=== PATIENT | female | born 1965 | race American Indian/Alaskan Native ===

== ENCOUNTER 2021-12-13 00:58 | Inpatient (IN) | payer SELFPAY ==
--- NOTE | 2021-12-13 01:26 | Emergency Department Report ---
HPI - General Chief Complaint: Dyspnea/Respdistress Time Seen by Provider: 12/13/21 01:14 - [facility] HPI: Room 5 The patient is a 56-year-old female present with chief complaint of shortness of breath. Patient states for the past 2 weeks she has had dyspnea on exertion and bilateral lower extremity edema. Patient states her abdomen has also began to swell at the bottom. Patient states she has to sleep sitting up because otherwise she gets short of breath. Patient denies having any past medical history except for gout ED Past Medical Hx - Past Medical History Previous Medical History?: Yes Additional medical history: Gout - Surgical History Past Surgical History?: No - Family History Family history: no significant - Social History Smoking Status: Never Smoker Substance Use Type: None (Denies illicit drug use) ED Review of Systems ROS: Stated complaint: CHIKIS Other details as noted in HPI Constitutional: no symptoms reported Eyes: denies: eye pain ENT: denies: throat pain Respiratory: orthopnea, shortness of breath, SOB with exertion Cardiovascular: dyspnea on exertion. denies: chest pain Endocrine: no symptoms reported Gastrointestinal: abdominal pain Genitourinary: denies: dysuria Musculoskeletal: denies: back pain Skin: other (Lower extremity edema) Neurological: denies: headache Physical Exam - Physical Exam Vital Signs: Vital Signs 12/13/21 01:05 Temperature 97.7 F Pulse Rate 100 H Respiratory 18 Rate Blood Pressure 116/70 O2 Sat by Pulse 99 Oximetry Physical Exam: GENERAL: The patient is well-developed well-nourished female lying on stretcher not appearing to be in acute distress. [] HEENT: Normocephalic. Atraumatic. Extraocular motions are intact. Patient has moist mucous membranes. NECK: Supple. Trachea midline CHEST/LUNGS: Clear to auscultation. There is no respiratory distress noted. HEART/CARDIOVASCULAR: Regular. There is no tachycardia. There is no gallop rub or murmur. ABDOMEN: Abdomen is soft, nontender. Patient has normal bowel sounds. There is no abdominal distention. SKIN: There is no rash. There is 2+ bilateral lower extremity pitting edema. There is trace pitting edema of the lower abdomen. There is no diaphoresis. NEURO: The patient is awake, alert, and oriented. The patient is cooperative. The patient has no focal neurologic deficits. The patient has normal speech. GCS 15 MUSCULOSKELETAL: There is no evidence of acute injury. ED Course Vital Signs 12/13/21 01:05 Temperature 97.7 F Pulse Rate 100 H Respiratory 18 Rate Blood Pressure 116/70 O2 Sat by Pulse 99 Oximetry ED Medical Decision Making - Lab Data Result diagrams: 12/13/21 01:51 12/13/21 01:51 Laboratory Tests 12/13/21 12/13/21 12/13/21 01:51 01:51 01:51 WBC 4.9 RBC 4.88 Hgb 10.7 Hct 35.0 MCV 72 L MCH 22 L MCHC 31 RDW 16.1 H Plt Count 143 [place] % (Auto) Customer Service Advocate PT 16.6 H INR 1.17 H Sodium 140 Potassium 4.0 Chloride 100.8 Carbon Dioxide 28 Anion Gap 15 BUN 9 Creatinine 0.8 Estimated GFR > 60 BUN/Creatinine Ratio 11 Glucose 108 H Calcium 8.8 Total Bilirubin 1.60 H AST 19 ALT 14 Alkaline Phosphatase 111 Total Creatine Kinase 139 H CK-MB (CK-2) 1.4 CK-MB (CK-2) Rel Index 1.0 Troponin T < 0.010 NT-Pro-B Natriuret Pep 4538 H Total Protein 6.5 Albumin 4.1 Albumin/Globulin Ratio 1.7 - EKG Data -: EKG Interpreted by Me EKG shows normal: sinus rhythm Rate: tachycardia (104 beats per) - EKG Data When compared to previous EKG there are: previous EKG unavailable Interpretation: nonspecific ST-T wave veronica - Radiology Data Radiology results: report reviewed (Chest x-ray), image reviewed (Chest x-ray) interpreted by me: Chest x-ray-CHF, no pneumothorax. No focal infiltrates [facility] [address] [place] [address] XRay Report Signed Patient: JOANN MORTON MR#: [id number] : 1965 Acct:[id number] Age/Sex: 56 / F ADM Date: 12/13/21 Loc: ED Attending Dr: Ordering Physician: DOMENICA ALONZO MD Date of Service: 12/13/21 Procedure(s): XR chest 1V ap Accession Number(s): [id number] cc: DOMENICA ALONZO MD Fluoro Time In Minutes: CHEST 1 VIEW INDICATION / CLINICAL INFORMATION: Shortness of breath. COMPARISON: None available. FINDINGS: SUPPORT DEVICES: None. HEART / MEDIASTINUM: Mild cardiomegaly. Pericardial effusion not excluded. LUNGS / PLEURA: Mild prominence of central vasculature. Opacities bilaterally within the lower chest may in part reflect beam attenuation. Mild pulmonary edema not excluded. Upper lungs clear. BONES: No significant osseous abnormality. ADDITIONAL FINDINGS: No significant additional findings. IMPRESSION: 1. Mild pulmonary edema and vascular congestion changes are suggested. Signer Name: Bryant Valencia II, MD Signed: 12/13/2021 2:03 AM Workstation Name: [id number] Transcribed By: RIVER Dictated By: BRYANT VALENCIA II, MD Electronically Authenticated By: BRYANT VALENCIA II, MD Signed Date/Time: 12/13/21202 DD/ 1 TD/TT: - Differential Diagnosis CHF, hypoalbuminemia, nephrotic syndrome, acute renal failure Critical care attestation.: If time is entered above; I have spent that time in minutes in the direct care of this critically ill patient, excluding procedure time. ED Disposition Clinical Impression: New onset of congestive heart failure Disposition: ADMITTED INPATIENT Is pt being admited?: Yes Does the pt Need Aspirin: Yes Condition: Fair Time of Disposition: 04:28 (Care transferred to hospitalist (Dr. Ibarra))
--- NOTE | 2021-12-13 02:07 | XRay Report ---
CHEST 1 VIEW INDICATION / CLINICAL INFORMATION: Shortness of breath. COMPARISON: None available. FINDINGS: SUPPORT DEVICES: None. HEART / MEDIASTINUM: Mild cardiomegaly. Pericardial effusion not excluded. LUNGS / PLEURA: Mild prominence of central vasculature. Opacities bilaterally within the lower chest may in part reflect beam attenuation. Mild pulmonary edema not excluded. Upper lungs clear. BONES: No significant osseous abnormality. ADDITIONAL FINDINGS: No significant additional findings. IMPRESSION: 1. Mild pulmonary edema and vascular congestion changes are suggested. Signer Name: Rigo Mesa II, MD Signed: 12/13/2021 2:03 AM Workstation Name: [id number]
[2021-12-13 02:18] LABS: Hemoglobin 10.7 gm/dl (10.1-14.3); Mean Corpuscular HGB Conc 31 % (30-34); Mean Corpuscular Volume 72 fl (79-97); Red Blood Count 4.88 M/mm3 (3.65-5.03); Red Cell Distribution Width 16.1 % (13.2-15.2)
[2021-12-13 02:27] LABS: INR 1.17 (0.87-1.13); Platelet Count 143 K/mm3 (140-440)
[2021-12-13 02:40] LABS: Creatine Kinase MB 1.4 ng/mL (0.0-4.0)
[2021-12-13 02:42] LABS: Alanine Aminotransferase 14 units/L (7-56); Albumin 4.1 g/dL (3.9-5); BUN/Creatinine Ratio 11; Blood Urea Nitrogen 9 mg/dL (7-17); Calcium 8.8 mg/dL (8.4-10.2); Hemolysis Index 8
[2021-12-13] MEDS ORDERED: FUROSEMIDE 40 MG/4 ML INJ IV ONE (02:59)
[2021-12-13 03:51] LABS: Anisocytosis 1+; Platelet Estimate Consistent w Auto; Total Cells Counted 100
[2021-12-13] MEDS ORDERED: MORPHINE 2 MG/1 ML INJ IV PRN ×2 (04:34→04:58)
[2021-12-13] MEDS ORDERED: ONDANSETRON 4 MG/2 ML INJ IV PRN ×2 (04:34→04:58)
[2021-12-13] MEDS ORDERED: ACETAMINOPHEN 325 MG TAB PO PRN ×2 (04:34→04:58)
[2021-12-13] MEDS ORDERED: MORPHINE 4 MG/1 ML INJ IV PRN (04:58)
[2021-12-13] MEDS ORDERED: ALBUTEROL 2.5 MG/3 ML NEBU IH PRN (04:58)
--- NOTE | 2021-12-13 05:04 | History and Physical Report ---
History of Present Illness Date of examination: 12/13/21 Date of admission: 12/13/21 Chief complaint: Dyspnea Respiratory distress History of present illness: 56-year-old female present with history of gout was brought to the hospital because of shortness of breath. Patient states for the past 2 weeks she has had dyspnea on exertion and bilateral lower extremity edema. Patient states her abdomen has also began to swell at the bottom. Patient states she has to sleep sitting up because otherwise she gets short of breath. In the emergency room patient chest x-ray shows mild pulmonary edema and vascular congestion. Also patient BNP is 4538 Past History Past Medical History: other (Gout) Past Surgical History: No surgical history Social history: no significant social history Family history: no significant family history Medications and Allergies Allergies Allergy/AdvReac Type Severity Reaction Status Date / Time No Known Allergies Allergy Verified 12/13/21 04:37 Active Meds: Active Medications Acetaminophen (Acetaminophen 325 Mg Tab) 650 mg PO Q4H PRN PRN Reason: Pain MILD(1-3)/Fever >100.5/BOLTON Morphine Sulfate (Morphine 2 Mg/1 Ml Inj) 2 mg IV Q4H PRN PRN Reason: Pain, Moderate (4-6) Ondansetron HCl (Ondansetron 4 Mg/2 Ml Inj) 4 mg IV Q8H PRN PRN Reason: Nausea And Vomiting Sodium Chloride (Sodium Chloride 0.9% 10 Ml Flush Syringe) 10 ml IV BID KENNETH Sodium Chloride (Sodium Chloride 0.9% 10 Ml Flush Syringe) 10 ml IV PRN PRN PRN Reason: LINE FLUSH Review of Systems All systems: negative Cardiovascular: orthopnea, edema, shortness of breath, dyspnea on exertion, paroxysmal nocturnal dyspnea Exam - Constitutional Vitals: Temp Pulse Resp BP Pulse Ox 97.8 F 97 H 17 108/74 99 12/13/21 01:23 12/13/21 04:00 12/13/21 04:00 12/13/21 04:00 12/13/21 04:00 General appearance: Present: no acute distress, well-nourished - EENT Eyes: Present: PERRL ENT: hearing intact, clear oral mucosa - Neck Neck: Present: supple, normal ROM - Respiratory Respiratory effort: normal Respiratory: bilateral: rales - Cardiovascular Heart Sounds: Present: S1 & S2. Absent: rub, click - Extremities Extremities: pulses symmetrical, No edema Peripheral Pulses: within normal limits - Abdominal General gastrointestinal: Present: soft, non-tender, non-distended, normal bowel sounds Female genitourinary: Present: normal - Integumentary Integumentary: Present: clear, warm, dry - Musculoskeletal Musculoskeletal: gait normal, strength equal bilaterally - Psychiatric Psychiatric: appropriate mood/affect, intact judgment & insight - Neurologic Neurologic: CNII-XII intact, moves all extremities HEART Score - HEART Score Troponin: Troponin T < 0.010 ng/mL (0.00-0.029) 12/13/21 01:51 Results - Labs CBC & Chem 7: 12/13/21 01:51 12/13/21 01:51 Labs: Laboratory Last Values WBC 4.9 K/mm3 (4.5-11.0) 12/13/21 01:51 RBC 4.88 M/mm3 (3.65-5.03) 12/13/21 01:51 Hgb 10.7 gm/dl (10.1-14.3) 12/13/21 01:51 Hct 35.0 % (30.3-42.9) 12/13/21 01:51 MCV 72 fl (79-97) L 12/13/21 01:51 MCH 22 pg (28-32) L 12/13/21 01:51 MCHC 31 % (30-34) 12/13/21 01:51 RDW 16.1 % (13.2-15.2) H 12/13/21 01:51 Plt Count 143 K/mm3 (140-440) 12/13/21 01:51 [place] % (Auto) Power Brake Operator 12/13/21 01:51 Add Manual Diff Complete 12/13/21 01:51 Total Counted 100 12/13/21 01:51 Seg Neuts % (Manual) 66.0 % (40.0-70.0) 12/13/21 01:51 Band Neutrophils % 0 % 12/13/21 01:51 Lymphocytes % (Manual) 17.0 % (13.4-35.0) 12/13/21 01:51 Reactive Lymphs % (Man) 0 % 12/13/21 01:51 Monocytes % (Manual) 12.0 % (0.0-7.3) H 12/13/21 01:51 Eosinophils % (Manual) 4.0 % (0.0-4.3) 12/13/21 01:51 Basophils % (Manual) 1.0 % (0.0-1.8) 12/13/21 01:51 Metamyelocytes % 0 % 12/13/21 01:51 Myelocytes % 0 % 12/13/21 01:51 Promyelocytes % 0 % 12/13/21 01:51 Blast Cells % 0 % 12/13/21 01:51 Nucleated RBC % Not Reportable 12/13/21 01:51 Seg Neutrophils # Man 3.2 K/mm3 (1.8-7.7) 12/13/21 01:51 Band Neutrophils # 0.0 K/mm3 12/13/21 01:51 Lymphocytes # (Manual) 0.8 K/mm3 (1.2-5.4) L 12/13/21 01:51 Abs React Lymphs (Man) 0.0 K/mm3 12/13/21 01:51 Monocytes # (Manual) 0.6 K/mm3 (0.0-0.8) 12/13/21 01:51 Eosinophils # (Manual) 0.2 K/mm3 (0.0-0.4) 12/13/21 01:51 Basophils # (Manual) 0.0 K/mm3 (0.0-0.1) 12/13/21 01:51 Metamyelocytes # 0.0 K/mm3 12/13/21 01:51 Myelocytes # 0.0 K/mm3 12/13/21 01:51 Promyelocytes # 0.0 K/mm3 12/13/21 01:51 Blast Cells # 0.0 K/mm3 12/13/21 01:51 WBC Morphology Not Reportable 12/13/21 01:51 Hypersegmented Neuts Not Reportable 12/13/21 01:51 Hyposegmented Neuts Not Reportable 12/13/21 01:51 Hypogranular Neuts Not Reportable 12/13/21 01:51 Smudge Cells Not Reportable 12/13/21 01:51 Toxic Granulation Not Reportable 12/13/21 01:51 Toxic Vacuolation Not Reportable 12/13/21 01:51 Dohle Bodies Not Reportable 12/13/21 01:51 Pelger-Huet Anomaly Not Reportable 12/13/21 01:51 Dean Rods Not Reportable 12/13/21 01:51 Platelet Estimate Consistent w auto 12/13/21 01:51 Clumped Platelets Not Reportable 12/13/21 01:51 Plt Clumps, EDTA Not Reportable 12/13/21 01:51 Large Platelets Not Reportable 12/13/21 01:51 Giant Platelets Not Reportable 12/13/21 01:51 Platelet Satelliting Not Reportable 12/13/21 01:51 Plt Morphology Comment Not Reportable 12/13/21 01:51 RBC Morphology Not Reportable 12/13/21 01:51 Dimorphic RBCs Not Reportable 12/13/21 01:51 Polychromasia Not Reportable 12/13/21 01:51 Hypochromasia Not Reportable 12/13/21 01:51 Poikilocytosis Not Reportable 12/13/21 01:51 Anisocytosis 1+ 12/13/21 01:51 Microcytosis Not Reportable 12/13/21 01:51 Macrocytosis Not Reportable 12/13/21 01:51 Spherocytes Not Reportable 12/13/21 01:51 Pappenheimer Bodies Not Reportable 12/13/21 01:51 Sickle Cells Not Reportable 12/13/21 01:51 Target Cells Not Reportable 12/13/21 01:51 Tear Drop Cells Not Reportable 12/13/21 01:51 Ovalocytes Not Reportable 12/13/21 01:51 Helmet Cells Not Reportable 12/13/21 01:51 Hernández-Duncan Bodies Not Reportable 12/13/21 01:51 Bonita Rings Not Reportable 12/13/21 01:51 Simon Cells Not Reportable 12/13/21 01:51 Bite Cells Not Reportable 12/13/21 01:51 Crenated Cell Not Reportable 12/13/21 01:51 Elliptocytes Not Reportable 12/13/21 01:51 Acanthocytes (Spur) Not Reportable 12/13/21 01:51 Rouleaux Not Reportable 12/13/21 01:51 Hemoglobin C Crystals Not Reportable 12/13/21 01:51 Schistocytes Not Reportable 12/13/21 01:51 Malaria parasites Not Reportable 12/13/21 01:51 Alexx Bodies Not Reportable 12/13/21 01:51 Hem Pathologist Commnt No 12/13/21 01:51 PT 16.6 Sec. (12.2-14.9) H 12/13/21 01:51 INR 1.17 (0.87-1.13) H 12/13/21 01:51 Sodium 140 mmol/L (137-145) 12/13/21 01:51 Potassium 4.0 mmol/L (3.6-5.0) 12/13/21 01:51 Chloride 100.8 mmol/L (98-107) 12/13/21 01:51 Carbon Dioxide 28 mmol/L (22-30) 12/13/21 01:51 Anion Gap 15 mmol/L 12/13/21 01:51 BUN 9 mg/dL (7-17) 12/13/21 01:51 Creatinine 0.8 mg/dL (0.6-1.2) 12/13/21 01:51 Estimated GFR > 60 ml/min 12/13/21 01:51 BUN/Creatinine Ratio 11 % 12/13/21 01:51 Glucose 108 mg/dL (65-100) H 12/13/21 01:51 Calcium 8.8 mg/dL (8.4-10.2) 12/13/21 01:51 Total Bilirubin 1.60 mg/dL (0.1-1.2) H 12/13/21 01:51 AST 19 units/L (5-40) 12/13/21 01:51 ALT 14 units/L (7-56) 12/13/21 01:51 Alkaline Phosphatase 111 units/L (35-129) 12/13/21 01:51 Total Creatine Kinase 139 units/L (30-135) H 12/13/21 01:51 CK-MB (CK-2) 1.4 ng/mL (0.0-4.0) 12/13/21 01:51 CK-MB (CK-2) Rel Index 1.0 (0-4) 12/13/21 01:51 Troponin T < 0.010 ng/mL (0.00-0.029) 12/13/21 01:51 NT-Pro-B Natriuret Pep 4538 pg/mL (0-900) H 12/13/21 01:51 Total Protein 6.5 g/dL (6.3-8.2) 12/13/21 01:51 Albumin 4.1 g/dL (3.9-5) 12/13/21 01:51 Albumin/Globulin Ratio 1.7 % 12/13/21 01:51 - Imaging and Cardiology Chest x-ray: report reviewed Assessment and Plan VTE prophylaxis?: Mechanical Plan of care discussed with patient/family: Yes - Patient Problems (1) New onset of congestive heart failure Status: Acute Plan to address problem: Admit the patient to the medical telemetry. Cardiac diet. Lasix 40 mg IV every 12 hours. Fluid restriction. Maintain daily input output. Daily weight. Echocardiogram. Consult cardiology if needed (2) Gout Status: Acute Plan to address problem: Stable. We continue the home medication (3) DVT prophylaxis Status: Acute Plan to address problem: SCD for DVT prophylaxis. Pepcid 20 mg p.o. twice daily for GI prophylaxis. Patient is a full code
[2021-12-13] MEDS: FUROSEMIDE 40 MG/4 ML INJ IV SCH ×2 (05:46→19:35)
[2021-12-13 06:41] LABS: WBC,Urine < 1.0 /HPF (0.0-6.0)
[2021-12-13 06:45] LABS: Color,Urine Yellow (Yellow)
--- NOTE | 2021-12-13 09:22 | Event Note ---
Date: 12/13/21 Patient seen and examined [place] consulted Heart failure education provided Awaiting ECHO Monitor LOW BP Patient is morbidly obese provided 50 minutes of counseling to the patient on importance of weight loss. Recommended outpatient sleep study she verbalized understanding. Further management based on cardiology recommendation
[2021-12-13] MEDS: IPRATROPIUM/ALBUTEROL SULFATE 3 ML AMPUL.NEB IH SCH ×3 (09:52→22:23)
--- NOTE | 2021-12-13 12:08 | Consultation ---
History of Present Illness Consult date: 12/13/21 Requesting physician: HANNA FLYNN Consult reason: congestive heart failure History of present illness: Patient is a 56-year-old female with a reported past medical history of gout who came to the ED for complaint of progressively worsening shortness of breath and bilateral lower extremity edema x2-week. Patient reports that in this timeframe she is also had dyspnea on exertion, PND, and orthopnea. She states that she is unable to walk for more than several minutes now without becoming very short of breath. She also reports abdominal swelling. She denies any chest pain, nausea, vomiting, diaphoresis, palpitations. In the ED patient was found to have elevated BNP and CXR showed mild pulmonary edema and vascular congestion. Patient is previously unknown to our practice. Cardiology is consulted for CHF. Past History Past Medical History: other (Gout) Past Surgical History: No surgical history Social history: no significant social history Family history: no significant family history Medications and Allergies Allergies Allergy/AdvReac Type Severity Reaction Status Date / Time No Known Allergies Allergy Verified 12/13/21 10:44 Home Medications Medication Instructions Recorded Confirmed Last Taken Type No Known Home Medications [No 12/13/21 12/13/21 Unknown History Reported Home Medications] Active Meds: Active Medications Acetaminophen (Acetaminophen 325 Mg Tab) 650 mg PO Q4H PRN PRN Reason: Pain MILD(1-3)/Fever >100.5/BOLTON Albuterol (Albuterol 2.5 Mg/3 Ml Nebu) 2.5 mg IH Q3HRT PRN PRN Reason: Shortness Of Breath Albuterol/Ipratropium (Ipratropium/Albuterol Sulfate 3 Ml Ampul.Neb) 1 ampul IH Q6HRT [facility] Last Admin: 12/13/21 09:52 Dose: 1 ampul Famotidine (Famotidine 20 Mg Tab) 20 mg PO BID [facility] Furosemide (Furosemide 40 Mg/4 Ml Inj) 40 mg IV BID@0600,1800 [facility] Last Admin: 12/13/21 05:46 Dose: Not Given Morphine Sulfate (Morphine 2 Mg/1 Ml Inj) 2 mg IV Q4H PRN PRN Reason: Pain, Moderate (4-6) Morphine Sulfate (Morphine 4 Mg/1 Ml Inj) 4 mg IV Q4H PRN PRN Reason: Pain , Severe (7-10) Ondansetron HCl (Ondansetron 4 Mg/2 Ml Inj) 4 mg IV Q8H PRN PRN Reason: Nausea And Vomiting Sodium Chloride (Sodium Chloride 0.9% 10 Ml Flush Syringe) 10 ml IV BID KENNETH Sodium Chloride (Sodium Chloride 0.9% 10 Ml Flush Syringe) 10 ml IV PRN PRN PRN Reason: LINE FLUSH Review of Systems Constitutional: no weight loss, no weight gain Ears, nose, mouth and throat: no sinus pressure, no sinus pain Cardiovascular: orthopnea, shortness of breath, dyspnea on exertion, paroxysmal nocturnal dyspnea, leg edema, no chest pain Respiratory: shortness of breath, dyspnea on exertion Gastrointestinal: no abdominal pain, no nausea, no vomiting Musculoskeletal: no neck stiffness, no neck pain Integumentary: no rash, no pruritis, no redness Neurological: no head injury, no transient paralysis, no paralysis Psychiatric: no anxiety, no memory loss Endocrine: no cold intolerance, no heat intolerance Hematologic/Lymphatic: no easy bruising, no easy bleeding Physical Examination Vital Signs Temp Pulse Resp BP Pulse Ox 97.7 F 100 H 18 116/70 99 12/13/21 01:05 12/13/21 01:05 12/13/21 01:05 12/13/21 01:05 12/13/21 01:05 General appearance: no acute distress HEENT: Positive: PERRL Cardiac: Positive: Reg Rate and Rhythm Lungs: Positive: Wheezes Neuro: Positive: Grossly Intact Abdomen: Positive: Soft Skin: Negative: Rash, Suspicious Lesions, Ulceration Extremities: Present: upper extr. pulses, edema Results 12/13/21 01:51 12/13/21 01:51 Cardiac Enzymes 12/13/21 Range/Units 01:51 AST 19 (5-40) units/L CK-MB (CK-2) 1.4 (0.0-4.0) ng/mL Coagulation 12/13/21 Range/Units 01:51 PT 16.6 H (12.2-14.9) Sec. INR 1.17 H (0.87-1.13) CBC 12/13/21 Range/Units 01:51 WBC 4.9 (4.5-11.0) K/mm3 RBC 4.88 (3.65-5.03) M/mm3 Hgb 10.7 (10.1-14.3) gm/dl Hct 35.0 (30.3-42.9) % Plt Count 143 (140-440) K/mm3 Comprehensive Metabolic Panel 12/13/21 Range/Units 01:51 Sodium 140 (137-145) mmol/L Potassium 4.0 (3.6-5.0) mmol/L Chloride 100.8 (98-107) mmol/L Carbon Dioxide 28 (22-30) mmol/L BUN 9 (7-17) mg/dL Creatinine 0.8 (0.6-1.2) mg/dL Glucose 108 H (65-100) mg/dL Calcium 8.8 (8.4-10.2) mg/dL AST 19 (5-40) units/L ALT 14 (7-56) units/L Alkaline Phosphatase 111 (35-129) units/L Total Protein 6.5 (6.3-8.2) g/dL Albumin 4.1 (3.9-5) g/dL - Imaging and Cardiology Echo: pending EKG interpretations - Telemetry EKG Rhythm: Sinus Rhythm - EKG Sinus rhythms and dysrhythmias: sinus rhythm Repolarization changes or abnormalities: nonspecific abnormality, ST segment, and/or T wave Assessment and Plan Patient is a 56-year-old female with a reported past medical history of gout who came to the ED for complaint of progressively worsening shortness of breath and bilateral lower extremity edema x2-week. Acute CHF Obesity Gout Plan: EKG shows sinus tach 104 with nonspecific T abnormalities. No acute ischemic changes. Troponins negative x1. Patient denies any complaints of chest pain BNP noted to be elevated, CXR shows mild pulmonary edema and vascular congestion, and patient has bilateral lower extremity edema and reports PND, orthopnea, and FERNANDES. Agree with Lasix 40 mg IV twice daily for diuresis Strict I&O's, daily weights, repeat BMP in the a.m. with close monitoring of renal function No GUANACO/ARB/Arni or beta-blockers at this time due to soft BP Echo pending Discussed plan of care with patient who verbalized understanding and acknowledgment Patient seen in conjunction with Dr. Gomez who agrees with plan of care - Patient Problems (1) Gout Current Visit: No Status: Acute (2) New onset of congestive heart failure Current Visit: No Status: Acute
[2021-12-13] MEDS: FAMOTIDINE 20 MG TAB PO SCH ×2 (14:24→21:50)
[2021-12-14] MEDS: IPRATROPIUM/ALBUTEROL SULFATE 3 ML AMPUL.NEB IH SCH ×4 (04:31→21:16)
[2021-12-14] MEDS: FUROSEMIDE 40 MG/4 ML INJ IV SCH ×2 (06:09→19:07)
[2021-12-14 06:22] LABS: Hematocrit 32.3 % (30.3-42.9); Mean Corpuscular HGB Conc 31 % (30-34); Mean Corpuscular Volume 71 fl (79-97); Platelet Count 134 K/mm3 (140-440); Red Blood Count 4.54 M/mm3 (3.65-5.03); Red Cell Distribution Width 16.4 % (13.2-15.2)
[2021-12-14 06:43] LABS: BUN/Creatinine Ratio 11; Blood Urea Nitrogen 9 mg/dL (7-17); Calcium 8.9 mg/dL (8.4-10.2); Chol/HDL Ratio 4.03 %; HDL Cholesterol 30 mg/dL (40-59); Hemolysis Index 11; LDL Cholesterol,Direct 77 mg/dL (50-130)
[2021-12-14 07:35] LABS: Total Cells Counted 100
[2021-12-14 07:36] LABS: Hypochromasia 2+; Platelet Estimate Consistent w Auto
--- NOTE | 2021-12-14 09:56 | Electrocardiograph Report ---
[facility] Test Date: 2021-12-13 Test Time: 01:23:29 Pat Name: JOANN MORTON Department: Room: A456 1 Gender: F Spouter: JOE lAba : 1965 Requested By: DOMENICA ALONZO Order Number: [id number] Reading MD: Scott Gomez Measurements Intervals Orient Rate: 104 P: 56 HI: 159 QRS: 3 QRSD: 87 T: QT: 348 QTc: 457 Interpretive Statements Sinus tachycardia Probable left atrial enlargement Nonspecific T abnormalities, lateral leads No previous ECG available for comparison Electronically Signed On 12-14-2021 9:56:39 EDT by Scott Gomez
[2021-12-14] MEDS: ASPIRIN 81 MG TAB CHEW PO SCH (10:50)
[2021-12-14] MEDS: FAMOTIDINE 20 MG TAB PO SCH ×2 (10:50→21:50)
--- NOTE | 2021-12-14 11:50 | Progress Note ---
Assessment and Plan Patient is a 56-year-old female with a reported past medical history of gout who came to the ED for complaint of progressively worsening shortness of breath and bilateral lower extremity edema x2-week. Acute HFrEF Obesity Gout Echo 12/13/2021-EF 15 to 20%. Severe global hypokinesis of LV. Right ventricle systolic function is normal. Right ventricle mildly dilated. Trace aortic regurgitation. Mild mitral regurgitation. Mild to moderate tricuspid regurgitation. Appears to be questionable thrombus in IVC. IVC is dilated and collapses with less than 50% inspiration Plan: Echo results noted above. Due to decreased EF will plan for cardiac cath in the a.m. patient to be n.p.o. after Echo shows questionable thrombus in IVC. CTA abdomen pelvis with contrast pending. If positive for thrombus will initiate anticoagulation with Lovenox Patient reports significant improvement in respiratory status however patient still continues to have bilateral lower extremity edema and some shortness of breath Will Continue Lasix 40 mg IV twice daily for diuresis Strict I&O's, daily weights, repeat BMP in the a.m. with close monitoring of renal function Patient BP improved we will initiate low-dose metoprolol 12.5 mg p.o. twice daily with close monitoring of BP and heart rate Will continue to hold GUANACO/ARB/Arni due to soft BP and initiation of beta-jose eduardo Discussed plan of care with patient who verbalized understanding and acknowledgment Patient seen in conjunction with Dr. Gomez who agrees with plan of care - Patient Problems (1) Gout Current Visit: No Status: Acute (2) New onset of congestive heart failure Current Visit: No Status: Inactive (3) Acute HFrEF (heart failure with reduced ejection fraction) Current Visit: Yes Status: Acute Subjective Date of service: 12/14/21 Principal diagnosis: HFrEF Interval history: Patient resting in bed in no acute distress. Patient reports feeling better this a.m. Sinus 90s on monitor Objective Vital Signs Temp Pulse Pulse Resp Resp BP BP 12/14/21 09:28 12/14/21 09:27 93 H 14 12/14/21 07:51 98.6 F 100 H 18 114/76 12/14/21 05:19 98.2 F 90 18 112/72 12/13/21 23:12 98.3 F 99 H 20 115/74 12/13/21 22:27 90 14 12/13/21 22:23 12/13/21 21:55 97.6 F 94 H 20 107/74 12/13/21 20:20 89 12/13/21 19:54 12/13/21 16:05 84 20 12/13/21 15:10 98.0 F 92 H 18 102/64 Pulse Ox 12/14/21 09:28 99 12/14/21 09:27 12/14/21 07:51 99 12/14/21 05:19 98 12/13/21 23:12 100 12/13/21 22:27 12/13/21 22:23 100 12/13/21 21:55 99 12/13/21 20:20 12/13/21 19:54 100 12/13/21 16:05 12/13/21 15:10 98 - Physical Examination General: No Apparent Distress HEENT: Positive: PERRL Cardiac: Positive: Reg Rate and Rhythm Lungs: Positive: Decreased Breath Sounds Neuro: Positive: Grossly Intact Abdomen: Positive: Soft Skin: Negative: Rash, Suspicious Lesions, Ulceration Extremities: Present: upper extr. pulses, edema - Labs and Meds Lipids 12/14/21 Range/Units 05:57 Triglycerides 77 (2-149) mg/dL Cholesterol 121 (50-199) mg/dL HDL Cholesterol 30 L (40-59) mg/dL Cholesterol/HDL Ratio 4.03 % CBC 12/14/21 Range/Units 05:57 WBC 4.6 (4.5-11.0) K/mm3 RBC 4.54 (3.65-5.03) M/mm3 Hgb 10.0 L (10.1-14.3) gm/dl Hct 32.3 (30.3-42.9) % Plt Count 134 L (140-440) K/mm3 Comprehensive Metabolic Panel 12/14/21 Range/Units 05:57 Sodium 142 (137-145) mmol/L Potassium 4.6 (3.6-5.0) mmol/L Chloride 101.0 (98-107) mmol/L Carbon Dioxide 33 H (22-30) mmol/L BUN 9 (7-17) mg/dL Creatinine 0.8 (0.6-1.2) mg/dL Glucose 103 H (65-100) mg/dL Calcium 8.9 (8.4-10.2) mg/dL - Imaging and Cardiology Echo: report reviewed Cardiac cath: pending - Telemetry EKG Rhythm: Sinus Rhythm - EKG Sinus rhythms and dysrhythmias: sinus rhythm Repolarization changes or abnormalities: nonspecific abnormality, ST segment, and/or T wave
[2021-12-14] MEDS ORDERED: SODIUM CHLORIDE 0.9% 500 ML 500 ML IV SCH (12:00)
--- NOTE | 2021-12-14 13:34 | Cat Scan Report ---
CTA ABDOMEN AND PELVIS WITHOUT AND WITH IV CONTRAST INDICATION / CLINICAL INFORMATION: rule out thrombus in IVC. TECHNIQUE: Axial CT images were obtained through the abdomen and pelvis before and after injection of 100 cc of Omnipaque 350 IV contrast. 3 plane MIP / 3D reconstructions were produced. All CT scans at this [facility] are performed using CT dose reduction for ALARA by means of automated exposure control. COMPARISON: None available. FINDINGS: Aorta: No significant abnormality. Renal arteries: No significant abnormality. Celiac artery: No significant abnormality. Superior Mesenteric Artery: No significant abnormality. Inferior mesenteric artery: No significant abnormality. Right Iliac Arteries: No significant abnormality.. Left Iliac Arteries: No significant abnormality. IVC: No filling defect to suggest thrombosis is detected on the venous images. The venous structures are unremarkable. Additional Findings: Mild cardiomegaly. Trace bilateral pleural effusions. Cholelithiasis without maria teresa dence of acute cholecystitis. Mild uterine fibroid disease. Skeletal Structures: No significant abnormality. IMPRESSION: Unremarkable CTA of the abdomen and pelvis. No evidence for thrombus in the IVC on the delayed images. Mild CHF. Cholelithiasis. Mild uterine fibroid disease. Signer Name: Jareth Espinoza Jr, MD Signed: 12/14/2021 1:30 PM Workstation Name: [id number]
--- NOTE | 2021-12-14 14:27 | Progress Note ---
Assessment and Plan Assessment and plan: 56-year-old female present with history of gout was brought to the hospital because of shortness of breath. Patient states for the past 2 weeks she has had dyspnea on exertion and bilateral lower extremity edema. Patient states her abdomen has also began to swell at the bottom. Patient states she has to sleep sitting up because otherwise she gets short of breath. In the emergency room patient chest x-ray shows mild pulmonary edema and vascular congestion. Also patient BNP is 4538 Past History Past Medical History: other (Gout) Past Surgical History: No surgical history Social history: no significant social history Family history: no significant family history 12/14: Patient seen and examined today reports improvement in her symptoms. Has good urine output did complain some burning sensation with urination feels a secondary to increased urination. Echocardiogram was done and is as noted below Echo 12/13/2021-EF 15 to 20%. Severe global hypokinesis of LV. Right ventricle systolic function is normal. Right ventricle mildly dilated. Trace aortic regurgitation. Mild mitral regurgitation. Mild to moderate tricuspid r egurgitation. Appears to be questionable thrombus in IVC. IVC is dilated and collapses with less than 50% inspiration Regional Loss Prevention Manager planning a cardiac cath in a.m. and also want to get a CTA abdomen and pelvis with contrast to further evaluate the thrombus in the IVC. We will start a full dose anticoagulation if thrombus is confirmed. Further recommendation per Cardiology: Will Continue Lasix 40 mg IV twice daily for diuresis Strict I&O's, daily weights, repeat BMP in the a.m. with close monitoring of renal function. Patient BP improved we will initiate low-dose metoprolol 12.5 mg p.o. twice daily with close monitoring of BP and heart rate. Will continue to hold GUANACO/ARB/Arni due to soft BP and initiation of beta-jose eduardo The CTA was obtained which did not reveal any IVC thrombus. Start the patient on Pyridium and will monitor for any development of if any fever. Will obtain an ambulatory pulse ox prior to discharge to evaluate need for oxygen Plan of care discussed with the patient in detail. Counseling for weight loss provided for 35-minute (1) New onset of acute cyst congestive heart failure Status: Acute Plan to address problem: Admit the patient to the medical telemetry. Cardiac diet. Lasix 40 mg IV every 12 hours. Fluid restriction. Maintain daily input output. Daily weight. Echocardiogram. Consult cardiology if needed (2) Gout Status: Acute Plan to address problem: Stable. We continue the home medication (3) Anemia of chronic disease (4) Thrombocytopenia (5) Pyuria (6) DVT prophylaxis Status: Acute Plan to address problem: SCD for DVT prophylaxis. Pepcid 20 mg p.o. twice daily for GI prophylaxis. Patient is a full code History Interval history: Patient seen and examined, reports, Hospitalist Physical - Physical exam Narrative exam: VITAL SIGNS: Reviewed. GENERAL: The patient appears normally developed, morbidly obese vital signs as documented. HEAD: No signs of head trauma. EYES: Pupils are equal. Extraocular motions intact. EARS: Hearing grossly intact. MOUTH: Oropharynx is normal. NECK: No adenopathy, no JVD. CHEST: Chest with clear breath sounds bilaterally. No wheezes, rales, or rhonchi. CARDIAC: Regular rate and rhythm. S1 and S2, without murmurs, gallops, or rubs. VASCULAR: +1 edema. Peripheral pulses normal and equal in all extremities. ABDOMEN: Soft, non tender and non distended. No rebound or guarding, and no masses palpated. Bowel Sounds normal. MUSCULOSKELETAL: Good range of motion of all major joints. Extremities without clubbing, cyanosis. +1 pitting edema bilateral. NEUROLOGIC EXAM: Alert and oriented x 3 No focal sensory or strength deficits. Speech normal. Follows commands. PSYCHIATRIC: Mood normal. SKIN: detail exam as documented in skin assessment - Constitutional Vitals: Temp Pulse Resp BP Pulse Ox 98.6 F 96 H 17 101/65 99 12/14/21 11:38 12/14/21 14:16 12/14/21 14:16 12/14/21 11:38 12/14/21 11:38 General appearance: Present: no acute distress HEART Score - HEART Score Troponin: Troponin T < 0.010 ng/mL (0.00-0.029) 12/13/21 01:51 Results - Labs CBC & Chem 7: 12/14/21 05:57 12/14/21 05:57 Labs: Laboratory Last Values WBC 4.6 K/mm3 (4.5-11.0) 12/14/21 05:57 RBC 4.54 M/mm3 (3.65-5.03) 12/14/21 05:57 Hgb 10.0 gm/dl (10.1-14.3) L 12/14/21 05:57 Hct 32.3 % (30.3-42.9) 12/14/21 05:57 MCV 71 fl (79-97) L 12/14/21 05:57 MCH 22 pg (28-32) L 12/14/21 05:57 MCHC 31 % (30-34) 12/14/21 05:57 RDW 16.4 % (13.2-15.2) H 12/14/21 05:57 Plt Count 134 K/mm3 (140-440) L 12/14/21 05:57 [place] % (Auto) Retail Merchandiser 12/14/21 05:57 Add Manual Diff Complete 12/14/21 05:57 Total Counted 100 12/14/21 05:57 Seg Neuts % (Manual) 61.0 % (40.0-70.0) 12/14/21 05:57 Band Neutrophils % 1.0 % 12/14/21 05:57 Lymphocytes % (Manual) 26.0 % (13.4-35.0) 12/14/21 05:57 Reactive Lymphs % (Man) 0 % 12/14/21 05:57 Monocytes % (Manual) 10.0 % (0.0-7.3) H 12/14/21 05:57 Eosinophils % (Manual) 1.0 % (0.0-4.3) 12/14/21 05:57 Basophils % (Manual) 1.0 % (0.0-1.8) 12/14/21 05:57 Metamyelocytes % 0 % 12/14/21 05:57 Myelocytes % 0 % 12/14/21 05:57 Promyelocytes % 0 % 12/14/21 05:57 Blast Cells % 0 % 12/14/21 05:57 Nucleated RBC % Not Reportable 12/14/21 05:57 Seg Neutrophils # Man 2.8 K/mm3 (1.8-7.7) 12/14/21 05:57 Band Neutrophils # 0.0 K/mm3 12/14/21 05:57 Lymphocytes # (Manual) 1.2 K/mm3 (1.2-5.4) 12/14/21 05:57 Abs React Lymphs (Man) 0.0 K/mm3 12/14/21 05:57 Monocytes # (Manual) 0.5 K/mm3 (0.0-0.8) 12/14/21 05:57 Eosinophils # (Manual) 0.0 K/mm3 (0.0-0.4) 12/14/21 05:57 Basophils # (Manual) 0.0 K/mm3 (0.0-0.1) 12/14/21 05:57 Metamyelocytes # 0.0 K/mm3 12/14/21 05:57 Myelocytes # 0.0 K/mm3 12/14/21 05:57 Promyelocytes # 0.0 K/mm3 12/14/21 05:57 Blast Cells # 0.0 K/mm3 12/14/21 05:57 WBC Morphology Not Reportable 12/14/21 05:57 Hypersegmented Neuts Not Reportable 12/14/21 05:57 Hyposegmented Neuts Not Reportable 12/14/21 05:57 Hypogranular Neuts Not Reportable 12/14/21 05:57 Smudge Cells Not Reportable 12/14/21 05:57 Toxic Granulation Not Reportable 12/14/21 05:57 Toxic Vacuolation Not Reportable 12/14/21 05:57 Dohle Bodies Not Reportable 12/14/21 05:57 Pelger-Huet Anomaly Not Reportable 12/14/21 05:57 Dean Rods Not Reportable 12/14/21 05:57 Platelet Estimate Consistent w auto 12/14/21 05:57 Clumped Platelets Not Reportable 12/14/21 05:57 Plt Clumps, EDTA Not Reportable 12/14/21 05:57 Large Platelets Not Reportable 12/14/21 05:57 Giant Platelets Not Reportable 12/14/21 05:57 Platelet Satelliting Not Reportable 12/14/21 05:57 Plt Morphology Comment Not Reportable 12/14/21 05:57 RBC Morphology Not Reportable 12/14/21 05:57 Dimorphic RBCs Not Reportable 12/14/21 05:57 Polychromasia Not Reportable 12/14/21 05:57 Hypochromasia 2+ 12/14/21 05:57 Poikilocytosis Not Reportable 12/14/21 05:57 Anisocytosis Not Reportable 12/14/21 05:57 Microcytosis Not Reportable 12/14/21 05:57 Macrocytosis Not Reportable 12/14/21 05:57 Spherocytes Not Reportable 12/14/21 05:57 Pappenheimer Bodies Not Reportable 12/14/21 05:57 Sickle Cells Not Reportable 12/14/21 05:57 Target Cells Not Reportable 12/14/21 05:57 Tear Drop Cells Not Reportable 12/14/21 05:57 Ovalocytes Not Reportable 12/14/21 05:57 Helmet Cells Not Reportable 12/14/21 05:57 Hernández-Screven Bodies Not Reportable 12/14/21 05:57 [place] Rings Not Reportable 12/14/21 05:57 [place] Cells Not Reportable 12/14/21 05:57 Bite Cells Not Reportable 12/14/21 05:57 Crenated Cell Not Reportable 12/14/21 05:57 Elliptocytes Not Reportable 12/14/21 05:57 Acanthocytes (Spur) Not Reportable 12/14/21 05:57 Rouleaux Not Reportable 12/14/21 05:57 Hemoglobin C Crystals Not Reportable 12/14/21 05:57 Schistocytes Not Reportable 12/14/21 05:57 Malaria parasites Not Reportable 12/14/21 05:57 Alexx Bodies Not Reportable 12/14/21 05:57 Hem Pathologist Commnt No 12/14/21 05:57 PT 16.6 Sec. (12.2-14.9) H 12/13/21 01:51 INR 1.17 (0.87-1.13) H 12/13/21 01:51 Sodium 142 mmol/L (137-145) 12/14/21 05:57 Potassium 4.6 mmol/L (3.6-5.0) 12/14/21 05:57 Chloride 101.0 mmol/L (98-107) 12/14/21 05:57 Carbon Dioxide 33 mmol/L (22-30) H 12/14/21 05:57 Anion Gap 13 mmol/L 12/14/21 05:57 BUN 9 mg/dL (7-17) 12/14/21 05:57 Creatinine 0.8 mg/dL (0.6-1.2) 12/14/21 05:57 Estimated GFR > 60 ml/min 12/14/21 05:57 BUN/Creatinine Ratio 11 % 12/14/21 05:57 Glucose 103 mg/dL (65-100) H 12/14/21 05:57 Calcium 8.9 mg/dL (8.4-10.2) 12/14/21 05:57 Total Bilirubin 1.60 mg/dL (0.1-1.2) H 12/13/21 01:51 AST 19 units/L (5-40) 12/13/21 01:51 ALT 14 units/L (7-56) 12/13/21 01:51 Alkaline Phosphatase 111 units/L (35-129) 12/13/21 01:51 Total Creatine Kinase 139 units/L (30-135) H 12/13/21 01:51 CK-MB (CK-2) 1.4 ng/mL (0.0-4.0) 12/13/21 01:51 CK-MB (CK-2) Rel Index 1.0 (0-4) 12/13/21 01:51 Troponin T < 0.010 ng/mL (0.00-0.029) 12/13/21 01:51 NT-Pro-B Natriuret Pep 4538 pg/mL (0-900) H 12/13/21 01:51 Total Protein 6.5 g/dL (6.3-8.2) 12/13/21 01:51 Albumin 4.1 g/dL (3.9-5) 12/13/21 01:51 Albumin/Globulin Ratio 1.7 % 12/13/21 01:51 Triglycerides 77 mg/dL (2-149) 12/14/21 05:57 Cholesterol 121 mg/dL (50-199) 12/14/21 05:57 LDL Cholesterol Direct 77 mg/dL (50-130) 12/14/21 05:57 HDL Cholesterol 30 mg/dL (40-59) L 12/14/21 05:57 Cholesterol/HDL Ratio 4.03 % 12/14/21 05:57 Urine Color Yellow (Yellow) 12/13/21 05:33 Urine Turbidity Slightly cloudy (Clear) 12/13/21 05:33 Specific [place] (Man) 1.020 (1.003-1.030) 12/13/21 05:33 Ur Protein (Man) 1+ mg/dL (Negative) 12/13/21 05:33 Ur Ketones (Man) Negative (Negative) 12/13/21 05:33 Ur Nitrite (Man) Negative (Negative) 12/13/21 05:33 Ur Reducing Substances Not Reportable 12/13/21 05:33 Urine Bilirubin (Man) Negative (Negative) 12/13/21 05:33 Urine Ictotest Not Reportable 12/13/21 05:33 Leukocyte Esterase (Man) Trace (Negative) 12/13/21 05:33 Urine WBC (Auto) < 1.0 /HPF (0.0-6.0) 12/13/21 05:33 Urine RBC (Auto) 1.0 /HPF (0.0-6.0) 12/13/21 05:33 U Epithel Cells (Auto) < 1.0 /HPF (0-13.0) 12/13/21 05:33 Urine RBC (Manual) Trace (Negative) 12/13/21 05:33 Blood Type B POSITIVE 12/14/21 11:55 Antibody Screen Negative 12/14/21 11:55 [place]/IV: Voiding Method Toilet Active Medications - Current Medications Current Medications: Generic Name Dose Route Start Last Admin Trade Name Freq PRN Reason Stop Dose Admin Acetaminophen 650 mg 12/13/21 04:58 Acetaminophen 325 Mg Tab PO Q4H PRN Pain MILD(1-3)/Fever >100.5/[place]OLTON Albuterol 2.5 mg 12/13/21 04:58 Albuterol 2.5 Mg/3 Ml Nebu IH Q3HRT PRN Shortness Of Breath Albuterol/Ipratropium 1 ampul 12/13/21 08:00 12/14/21 14:15 Ipratropium/Albuterol Sulfate 3 Ml Ampul.Neb IH 1 ampul Q6HRT KENNETH Administration Aspirin 81 mg 12/14/21 10:00 12/14/21 10:50 Aspirin 81 Mg Tab Chew PO 81 mg QDAY KENNETH Administration Famotidine 20 mg 12/13/21 10:00 12/14/21 10:50 Famotidine 20 Mg Tab PO 20 mg BID KENNETH Administration Furosemide 40 mg 12/13/21 06:00 12/14/21 06:09 Furosemide 40 Mg/4 Ml Inj IV 40 mg BID@0600,1800 KENNETH Administration Sodium Chloride 500 mls @ 50 mls/hr 12/14/21 12:00 Nacl 0.9% 500 Ml IV 12/14/21 21:59 DIRECT KENNETH Metoprolol Tartrate 12.5 mg 12/14/21 12:00 Metoprolol Tartrate 25 Mg Tab PO BID KENNETH Morphine Sulfate 2 mg 12/13/21 04:58 Morphine 2 Mg/1 Ml Inj IV Q4H PRN Pain, Moderate (4-6) Morphine Sulfate 4 mg 12/13/21 04:58 Morphine 4 Mg/1 Ml Inj IV Q4H PRN Pain , Severe (7-10) Ondansetron HCl 4 mg 12/13/21 04:58 Ondansetron 4 Mg/2 Ml Inj IV Q8H PRN Nausea And Vomiting Phenazopyridine HCl 100 mg 12/14/21 14:00 Phenazopyridine 100 Mg Tab PO Q8HR KENNETH Sodium Chloride 10 ml 12/13/21 10:00 12/14/21 10:50 Sodium Chloride 0.9% 10 Ml Flush Syringe IV 10 ml BID KENNETH Administration Sodium Chloride 10 ml 12/13/21 04:58 Sodium Chloride 0.9% 10 Ml Flush Syringe IV PRN PRN LINE FLUSH
[2021-12-14] MEDS: PHENAZOPYRIDINE 100 MG TAB PO SCH ×2 (14:52→21:50)
[2021-12-14] MEDS: METOPROLOL TARTRATE 25 MG TAB PO SCH ×2 (14:53→21:50)
[2021-12-15] MEDS: FUROSEMIDE 40 MG/4 ML INJ IV SCH (05:31)
[2021-12-15] MEDS: PHENAZOPYRIDINE 100 MG TAB PO SCH (05:32)
[2021-12-15 05:58] LABS: Basophils % (Auto) 0.8 % (0.0-1.8); Eosinophils # (Auto) 0.2 K/mm3 (0.0-0.4); Eosinophils % (Auto) 3.2 % (0.0-4.3); Hemoglobin 10.7 gm/dl (10.1-14.3); Lymphocytes # (Auto) 1.4 K/mm3 (1.2-5.4); Lymphocytes % (Auto) 28.8 % (13.4-35.0); Mean Corpuscular HGB Conc 32 % (30-34); Mean Corpuscular Volume 71 fl (79-97); Monocytes # (Auto) 0.6 K/mm3 (0.0-0.8); Monocytes % (Auto) 11.9 % (0.0-7.3); Red Blood Count 4.78 M/mm3 (3.65-5.03); Red Cell Distribution Width 16.1 % (13.2-15.2)
[2021-12-15 06:04] LABS: Platelet Count 148 K/mm3 (140-440)
[2021-12-15 06:05] LABS: BUN/Creatinine Ratio 13; Blood Urea Nitrogen 10 mg/dL (7-17); Calcium 8.9 mg/dL (8.4-10.2); Hemolysis Index 6; INR 1.03 (0.87-1.13)
[2021-12-15] MEDS ORDERED: SODIUM CHLORIDE 0.9% 500 ML 500 ML ONE ×2 (07:25→07:27)
[2021-12-15] MEDS: ASPIRIN 81 MG TAB CHEW PO SCH ×2 (07:34→09:31)
[2021-12-15] MEDS ORDERED: HEPARIN/NS 5000 UNIT/500ML 1,000 ML IR ONE (08:11)
[2021-12-15] MEDS: fentaNYL 100 MCG/2 ML INJ ONE ×2 (08:37→08:44)
[2021-12-15] MEDS: LIDOCAINE (2%) 20 MG/1 ML VIAL 20 ML MDV INFILTRATI ONE ×2 (08:38→08:46)
[2021-12-15] MEDS: MIDAZOLAM 2 MG/2 ML INJ ONE ×2 (08:38→08:44)
[2021-12-15] MEDS: VERAPAMIL 5 MG/2 ML INJ ONE ×2 (08:38→08:47)
[2021-12-15] MEDS: NITROGLYCERIN SYRINGE 3 ML ONE ×2 (08:39→08:47)
[2021-12-15] MEDS: HEPARIN 10,000 UNITS/10 ML VIAL ONE ×2 (08:39→08:47)
[2021-12-15] MEDS: IPRATROPIUM/ALBUTEROL SULFATE 3 ML AMPUL.NEB IH SCH ×2 (08:48→14:25)
[2021-12-15] MEDS ORDERED: FUROSEMIDE 40 MG/4 ML INJ ONE (08:55)
--- NOTE | 2021-12-15 09:15 | Cardiac Catherization Report ---
DATE OF SERVICE: 12/15/2021 LEFT HEART CATHETERIZATION CLINICAL INFORMATION: This is a 56-year-old female with morbid obesity, we admitted for systolic heart failure, found EF of 20-25%, here for a left heart cath for ischemic evaluation. Procedure was done with moderate sedation started at 08:42, finished at 08:58, 60 minutes of moderate sedation. DESCRIPTION OF PROCEDURE: Procedure was done via the right radial artery, sterile technique, local anesthesia. A 6-[place] radial sheath inserted. Left system engaged with JL3.5 catheter. Left main is large and patent, bifurcates into large LAD, is patent. Diagonal 1, diagonal 2 medium caliber was patent. Circumflex, large caliber vessel in the AV groove patent. OM1, OM2 are large caliber, was patent. RCA engaged with JR4, is a large, dominant vessel, patent. PDA, PLV are small caliber, was patent. LV gram done in [place] and [place] shows severe LV dysfunction, EF 25%. LVEDP at 35 mmHg, LV is 101, aortic is 100/67. No gradient across the aortic valve on pullback. The 5-[place] catheters, all taken over guidewire. A 6-[place] radial sheath was discontinued. Radial band applied. No hematoma, no bleeding. SUMMARY: Normal coronaries, large epicardial vessels with severe LV dysfunction with elevated left end-diastolic pressure and nonischemic cardiomyopathy. TID: [id number] RECEIPT: [id number] YAIMA/VJ
[2021-12-15] MEDS: FUROSEMIDE 40 MG TAB PO SCH ×2 (09:31→10:10)
[2021-12-15] MEDS: METOPROLOL TARTRATE 25 MG TAB PO SCH (09:47)
[2021-12-15] MEDS: FAMOTIDINE 20 MG TAB PO SCH (09:47)
[2021-12-15] MEDS ORDERED: HYDROcodone/ACETAMINOPHEN 5-325 MG TAB PO PRN (10:00)
[2021-12-15] MEDS ORDERED: traMADol 50 MG TAB PO PRN (10:00)
--- NOTE | 2021-12-15 11:15 | Progress Note ---
Assessment and Plan Patient is a 56-year-old female with a reported past medical history of gout who came to the ED for complaint of progressively worsening shortness of breath and bilateral lower extremity edema x2-week. Acute HFrEF Nonischemic cardiomyopathy Obesity Gout Echo 12/13/2021-EF 15 to 20%. Severe global hypokinesis of LV. Right ventricle systolic function is normal. Right ventricle mildly dilated. Trace aortic regurgitation. Mild mitral regurgitation. Mild to moderate tricuspid regurgitation. Appears to be questionable thrombus in IVC. IVC is dilated and collapses with less than 50% inspiration Cardiac cath 12/15/2021-normal coronaries, large epicardial vessel with severe LV dysfunction with elevated end-diastolic pressure. Nonischemic cardiomyopathy Plan: Cardiac cath this a.m. showed normal coronaries Prior to cath patient still slightly short of breath patient received one-time dose of IV Lasix with significant improvement in respiratory status Will transition to Lasix 40 mg p.o. twice daily and initiate Aldactone 25 mg p.o. daily Recommend patient walk around this afternoon if patient is not hypoxic patient may be discharged from cardiac standpoint Continue low-dose metoprolol 12.5 mg p.o. twice daily with close monitoring of BP and heart rate Will continue to hold GUANACO/ARB/Arni due to soft BP Discussed plan of care with patient who verbalized understanding and acknowledgment Cardiac status otherwise stable Patient's follow-up appointment with Dr. Gomez, [facility] operations specialist, on 01/10/2022 at 2 PM in our [place] location. Phone #[phone] Patient seen in conjunction with Dr. Gomez who agrees with plan of care - Patient Problems (1) Gout Current Visit: No Status: Acute (2) New onset of congestive heart failure Current Visit: No Status: Inactive (3) Acute HFrEF (heart failure with reduced ejection fraction) Current Visit: Yes Status: Acute Subjective Date of service: 12/15/21 Principal diagnosis: HFrEF Interval history: Patient for cardiac cath this a.m. Sinus 90s on monitor Objective Vital Signs Temp Pulse Pulse Resp Resp BP BP 12/15/21 09:48 98.0 F 16 130/70 12/15/21 09:47 98 H 130/70 12/15/21 07:00 98 F 16 130/70 12/15/21 03:26 122.0 F H 98 H 20 95/61 12/15/21 00:37 98.1 F 93 H 18 95/61 12/14/21 21:18 101 H 20 12/14/21 20:42 20 12/14/21 20:37 87 12/14/21 20:23 98.0 F 88 18 101/62 12/14/21 19:29 12/14/21 16:11 98.0 F 87 16 99/65 12/14/21 16:07 98.0 F 89 18 97/63 12/14/21 15:56 18 12/14/21 14:53 96 H 12/14/21 14:16 96 H 17 12/14/21 11:38 98.6 F 94 H 18 101/65 Pulse Ox 12/15/21 09:48 12/15/21 09:47 12/15/21 07:00 100 12/15/21 03:26 89 12/15/21 00:37 95 12/14/21 21:18 100 12/14/21 20:42 98 12/14/21 20:37 12/14/21 20:23 100 12/14/21 19:29 100 12/14/21 16:11 96 12/14/21 16:07 95 12/14/21 15:56 68 L 12/14/21 14:53 12/14/21 14:16 12/14/21 11:38 99 - Physical Examination General: No Apparent Distress HEENT: Positive: PERRL Neck: Positive: trachea midline Cardiac: Positive: Reg Rate and Rhythm Lungs: Positive: Normal Breath Sounds Neuro: Positive: Grossly Intact Abdomen: Positive: Soft Skin: Negative: Rash, Suspicious Lesions, Ulceration Extremities: Present: upper extr. pulses, edema - Labs and Meds Coagulation 12/15/21 Range/Units 04:58 PT 15.0 H (12.2-14.9) Sec. INR 1.03 (0.87-1.13) CBC 12/15/21 Range/Units 04:58 WBC 4.7 (4.5-11.0) K/mm3 RBC 4.78 (3.65-5.03) M/mm3 Hgb 10.7 (10.1-14.3) gm/dl Hct 34.0 (30.3-42.9) % Plt Count 148 (140-440) K/mm3 Lymph # (Auto) 1.4 (1.2-5.4) K/mm3 [place] # (Auto) 0.6 (0.0-0.8) K/mm3 Eos # (Auto) 0.2 (0.0-0.4) K/mm3 Baso # (Auto) 0.0 (0.0-0.1) K/mm3 Comprehensive Metabolic Panel 12/15/21 Range/Units 04:58 Sodium 145 (137-145) mmol/L Potassium 4.1 (3.6-5.0) mmol/L Chloride 100.8 (98-107) mmol/L Carbon Dioxide 30 (22-30) mmol/L BUN 10 (7-17) mg/dL Creatinine 0.8 (0.6-1.2) mg/dL Glucose 96 (65-100) mg/dL Calcium 8.9 (8.4-10.2) mg/dL - Imaging and Cardiology Echo: report reviewed Cardiac cath: report reviewed - Telemetry EKG Rhythm: Sinus Rhythm - EKG Sinus rhythms and dysrhythmias: sinus rhythm Repolarization changes or abnormalities: nonspecific abnormality, ST segment, and/or T wave
--- NOTE | 2021-12-15 11:15 | Discharge Summary ---
Providers - Providers Date of Admission: 12/13/21 04:34 Attending physician: HANNA FLYNN MD 12/13/21 09:21 Consult to Physician [CONS] Routine Comment: Consulting Provider: EMILIANO LAGUNAS Physician Instructions: Reason For Exam: heart failure 12/15/21 09:27 Consult to Cardiac Rehabilitation [CONS] Routine Reason For Exam: Cardiac Rehab Evaluation Primary care physician: JESSIKA RAND Hospitalization Reason for admission: shortness of breath Condition: Stable Hospital course: 56-year-old female present with history of gout was brought to the hospital because of shortness of breath. Patient states for the past 2 weeks she has had dyspnea on exertion and bilateral lower extremity edema. Patient states her abdomen has also began to swell at the bottom. Patient states she has to sleep sitting up because otherwise she gets short of breath. In the emergency room patient chest x-ray shows mild pulmonary edema and vas cular congestion. Also patient BNP is 4538 Past History Past Medical History: other (Gout) Past Surgical History: No surgical history Social history: no significant social history Family history: no significant family history 12/14: Patient seen and examined today reports improvement in her symptoms. Has good urine output did complain some burning sensation with urination feels a secondary to increased urination. Echocardiogram was done and is as noted below Echo 12/13/2021-EF 15 to 20%. Severe global hypokinesis of LV. Right ventricle systolic function is normal. Right ventricle mildly dilated. Trace aortic regurgitation. Mild mitral regurgitation. Mild to moderate tricuspid regurgitation. Appears to be questionable thrombus in IVC. IVC is dilated and collapses with less than 50% inspiration Pharmacist Critical Care planning a cardiac cath in a.m. and also want to get a CTA abdomen and pelvis with contrast to further evaluate the thrombus in the IVC. We will start a full dose anticoagulation if thrombus is confirmed. Further recommendation per Cardiology: Will Continue Lasix 40 mg IV twice daily for diuresis Strict I&O's, daily weights, repeat BMP in the a.m. with close monitoring of renal function. Patient BP improved we will initiate low-dose metoprolol 12.5 mg p.o. twice daily with close monitoring of BP and heart rate. Will continue to hold GUANACO/ARB/Arni due to soft BP and initiation of beta-jose eduardo The CTA was obtained which did not reveal any IVC thrombus. Start the patient on Pyridium and will monitor for any development of if any fever. Will obtain an ambulatory pulse ox prior to discharge to evaluate need for oxygen Plan of care discussed with the patient in detail. Counseling for weight loss provided for 35-minute 12/15: Patient seen and examined, no new complaints, Discussed cardiology, cardiac cath was done and has normal large epicardial vessel with severe lv dysfunction with elevated left end-diastolic pressure and nonischemic cardiomyopathy. Patient reports improved respiratory symptoms although had some mild hypoxia this morning, patient can be discharged after home o2 eval and will likely need home o2 Education was provided. Echo 12/13/2021-EF 15 to 20%. Severe global hypokinesis of LV. Right ventricle systolic function is normal. Right ventricle mildly dilated. Trace aortic regurgitation. Mild mitral regurgitation. Mild to moderate tricuspid regurgitation. Appears to be questionable thrombus in IVC. IVC is dilated and collapses with less than 50% inspiration Cardiac cath 12/15/2021-normal coronaries, large epicardial vessel with severe LV dysfunction with elevated end-diastolic pressure. Nonischemic cardiomyopathy Will transition to Lasix 40 mg p.o. twice daily and initiate Aldactone 25 mg p.o. daily Recommend patient walk around this afternoon if patient is not hypoxic patient may be discharged from cardiac standpoint Continue low-dose metoprolol 12.5 mg p.o. twice daily with close monitoring of BP and heart rate Will continue to hold GUANACO/ARB/Arni due to soft BP Patient's follow-up appointment with Dr. Gomez, [facility] software licensing specialist, on 01/10/2022 at 2 PM in our [place] location. Phone #[phone] Patient seen in conjunction with Dr. Gomez who agrees with plan of care (1) New onset of acute cyst congestive heart failure Status: Acute Plan to address problem: Admit the patient to the medical telemetry. Cardiac diet. Lasix 40 mg IV every 12 hours. Fluid restriction. Maintain daily input output. Daily weight. Echocardiogram. Consult cardiology if needed (2) Gout Status: Acute Plan to address problem: Stable. We continue the home medication (3) Anemia of chronic disease (4) Thrombocytopenia (5) Hypoxic respiratory failure (6) Pyuria Disposition: HOME HEALTH CARE SERVICE Final Discharge Diagnosis (Prints w/discharge instructions): (1) New onset of acute cyst congestive heart failure. (2) Gout. (3) Anemia of chronic disease. (4) Thrombocytopenia. (5) Hypoxic respiratory failure. (6) Pyuria Time spent for discharge: 35 mins Core Measure Documentation - Palliative Care Palliative Care/ Comfort Measures: Not Applicable - Core Measures Any of the following diagnoses?: heart failure - Heart Failure Discharge Requirements GUANACO/ARB for LVSD if EF <40%: No Reason for no GUANACO/ARB: Hypotension Beta jose eduardo at discharge: Yes Exam - Physical Exam Narrative exam: VITAL SIGNS: Reviewed. GENERAL: The patient appears normally developed, morbidly obese vital signs as documented. HEAD: No signs of head trauma. EYES: Pupils are equal. Extraocular motions intact. EARS: Hearing grossly intact. MOUTH: Oropharynx is normal. NECK: No adenopathy, no JVD. CHEST: Chest with clear breath sounds bilaterally. No wheezes, rales, or rhonchi. CARDIAC: Regular rate and rhythm. S1 and S2, without murmurs, gallops, or rubs. VASCULAR: +1 edema. Peripheral pulses normal and equal in all extremities. ABDOMEN: Soft, non tender and non distended. No rebound or guarding, and no masses palpated. Bowel Sounds normal. MUSCULOSKELETAL: Good range of motion of all major joints. Extremities without clubbing, cyanosis. +1 pitting edema bilateral. NEUROLOGIC EXAM: Alert and oriented x 3 No focal sensory or strength deficits. Speech normal. Follows commands. PSYCHIATRIC: Mood normal. SKIN: detail exam as documented in skin assessment - Constitutional Vitals: Temp Pulse Resp BP Pulse Ox 98.0 F 98 H 16 130/70 100 12/15/21 09:48 12/15/21 09:47 12/15/21 09:48 12/15/21 09:48 12/15/21 07:00 Plan Activity: advance as tolerated, fall precautions Diet: low salt Special Instructions: restrict fluid intake to (1000cc/day), record daily weights, record daily BP diary, home oxygen via (nasal cannula @ 2 liters per minute) Follow up with: JESSIKA RAND MD [Primary Care Provider] - 7 Days KE GOMEZ MD [Staff Physician] - 01/10/22 2:00 pm ([facility] location. Phone #[phone]) Prescriptions: Spironolactone [Aldactone] 25 mg PO QDAY #30 tablet Aspirin [Aspirin BABY CHEW TAB] 81 mg PO QDAY #30 tab.chew Furosemide [Lasix TAB] 40 mg PO BID #60 tablet Metoprolol [Lopressor TAB] 12.5 mg PO BID #30 tablet Famotidine [Pepcid] 20 mg PO BID #30 tablet
[2021-12-15 12:30] VITALS: BP 113/68
[2021-12-15] MEDS ORDERED: FUROSEMIDE 40 MG TAB PO SCH (22:00)
[2021-12-16] MEDS ORDERED: SPIRONOLACTONE 25 MG TAB PO SCH (10:00)
--- NOTE | 2021-12-16 17:31 | Electrocardiograph Report ---
[facility] Test Date: 2021-12-15 Test Time: 06:42:54 Pat Name: JOANN MORTON Department: Room: A456 1 Gender: F Pan Cleaner: Carol Jacinto : 1965 Requested By: BRIGIDO WAKEFIELD Order Number: [id number] Reading MD: Seng Rainey Measurements Intervals Amber Rate: 97 P: 48 MI: 163 QRS: 8 QRSD: 82 T: QT: 420 QTc: 534 Interpretive Statements Sinus rhythm Prolonged QT interval Compared to ECG 12/13/2021 01:23:29 No significant change Electronically Signed On 12-16-2021 17:31:46 EDT by Seng Rainey
== END 2021-12-15 15:30 | disposition home or self-care (01) | DRG 286 ==
LOC: ED 00:58 → 4A 04:34
PROVIDERS: ADMIT Hospitalist; ATTEND Internal Medicine
PROC: 4A023N7 Measurement of Cardiac Sampling and Pressure, Left Heart, Percutaneous Approach (ICD-10-PCS; principal; 2021-12-15)
PROC: B2111ZZ Fluoroscopy of Multiple Coronary Arteries using Low Osmolar Contrast (ICD-10-PCS; 2021-12-15)
PROC: B2151ZZ Fluoroscopy of Left Heart using Low Osmolar Contrast (ICD-10-PCS; 2021-12-15)
DX: I50.21 Acute systolic (congestive) heart failure (principal); J96.91 Respiratory failure, unspecified with hypoxia; I42.8 Other cardiomyopathies; Z68.41 Body mass index [BMI] 40.0-44.9, adult; M10.9 Gout, unspecified; E66.01 Morbid (severe) obesity due to excess calories; D63.8 Anemia in other chronic diseases classified elsewhere; D69.6 Thrombocytopenia, unspecified; R82.81 Pyuria
CPT/HCPCS: 36415; 71045; 74174; 80048; 80053; 80061; 81001; 82550; 82553; 83880; 84484; 85007; 85025; 85610; 86850; 86900; 86901; 93005; 93306; 93458; 94640; 94760; 96374; 99285; G0378; J1815; J3490; C1894; C8929; J1644; J1940; J2250; J3010; J7040; Q9967